=== PATIENT | male | born 1935 | race Caucasian/White ===

== ENCOUNTER → 2016-04-15 | Outpatient (CLI) | payer OTHER, MEDICARE ==
[~2016-04-15] MED LIST: B COMPLEX WITH1 EACH PO; CREON DR 24,001 EACH PO; DAILY MULTIPLE1 EAC1 PO; METOPROLOL SUCC25 MG PO; OMNICEF DPS300 MG PO; TYLENOL DPS325 MG PO
== END | disposition home or self-care (01) ==
LOC: RAD.S 13:32 → EDSTATUS 14:00
DX: C24.1 Malignant neoplasm of ampulla of Vater (principal); D70.1 Agranulocytosis secondary to cancer chemotherapy; I10 Essential (primary) hypertension; Z98.890 Other specified postprocedural states; Z90.411 Acquired partial absence of pancreas

== ENCOUNTER 2016-05-24 06:53 | Inpatient (IN) | payer MEDICARE, OTHER ==
[2016-05-29] MEDS ORDERED: CREON DR 24,001 EACH PO (06:23)
[2016-05-29] MEDS ORDERED: METOPROLOL SUCC25 MG PO (06:23)
[2016-05-29] MEDS ORDERED: DAILY MULTIPLE1 EAC1 PO (06:24)
[2016-05-29] MEDS ORDERED: B COMPLEX WITH1 EACH PO (06:24)
[2016-05-29] MEDS ORDERED: OMNICEF DPS300 MG PO (06:24)
[2016-05-29] MEDS ORDERED: TYLENOL DPS325 MG PO (06:25)
== END 2016-05-28 10:00 | disposition home or self-care (01) | DRG 809 ==
DX: D70.9 Neutropenia, unspecified (principal); C79.9 Secondary malignant neoplasm of unspecified site; E44.0 Moderate protein-calorie malnutrition; S09.90XA Unspecified injury of head, initial encounter; I48.91 Unspecified atrial fibrillation; C22.1 Intrahepatic bile duct carcinoma; R50.81 Fever presenting with conditions classified elsewhere; E83.42 Hypomagnesemia; D61.810 Antineoplastic chemotherapy induced pancytopenia; E87.6 Hypokalemia; W19.XXXA Unspecified fall, initial encounter; I10 Essential (primary) hypertension; Z82.49 Family history of ischemic heart disease and other diseases of the circulatory system

== ENCOUNTER → 2016-07-14 | Outpatient (CLI) | payer OTHER, MEDICARE | END | disposition home or self-care (01) | LOC: PTH.S 07:37 | DX: C24.1 Malignant neoplasm of ampulla of Vater (principal); D70.1 Agranulocytosis secondary to cancer chemotherapy; I10 Essential (primary) hypertension; C78.01 Secondary malignant neoplasm of right lung; J90 Pleural effusion, not elsewhere classified; R18.8 Other ascites; K76.89 Other specified diseases of liver ==